=== PATIENT | male | born 1995 | race Hispanic/Latino ===

== ENCOUNTER 2019-06-29 10:03 | Emergency (ER) | payer SELFPAY ==
[2019-06-29 11:03] LABS: APPEARANCE,URINE Clear (CLEAR); BILIRUBIN,URINE Negative (NEGATIVE); COLOR,URINE Yellow (YELLOW); GLUCOSE, URINE (UA) Negative (NEGATIVE); KETONES,URINE Negative (NEGATIVE); LEUKOCYTE ESTERASE ,URINE Moderate (NEGATIVE); NITRATE,URINE Negative (NEGATIVE); OCCULT BLOOD,URINE Negative (NEGATIVE); PH,URINE 6.5 (5.0-8.0); PROTEIN,URINE Negative (NEGATIVE)
[2019-06-29 11:20] LABS: BACTERIA,URINE Rare /HPF (None Seen); RBC,URINE 0-1 /HPF (0-1); SQUAMOUS EPITHELIAL CELL,UR Rare /HPF (0-2)
[2019-06-29] MEDS ORDERED: LIDOCAINE HCL-MPF 1% 2ML VIAL ONE (11:22)
[2019-06-29] MEDS ORDERED: CEFTRIAXONE SODIUM 500 MG VIAL ONE (11:22)
[2019-06-29] MEDS ORDERED: ONDANSETRON ODT 4 MG TAB ONE (11:23)
[2019-06-29] MEDS ORDERED: AZITHROMYCIN 250 MG TABLET PO ONE (11:23)
== END 2019-06-29 11:51 | disposition home or self-care (01) ==
LOC: EDH 10:03
DX: N39.0 Urinary tract infection, site not specified (principal); Z20.2 Contact with and (suspected) exposure to infections with a predominantly sexual mode of transmission; Z72.0 Tobacco use
CPT/HCPCS: 81001; 87088; 87486; 87797; 96372; 99284; J0696; J3490

== ENCOUNTER 2019-08-04 11:05 | Emergency (ER) | payer OTHER | END 2019-08-04 12:19 | disposition home or self-care (01) | LOC: EDH 11:05 | DX: L02.413 Cutaneous abscess of right upper limb (principal); L03.113 Cellulitis of right upper limb; Z72.0 Tobacco use ==